=== PATIENT | female | born 1975 | race Caucasian/White ===

== ENCOUNTER 2018-09-03 15:54 | Emergency (ER) | payer OTHER ==
[2018-09-03 16:09] VITALS: RESP 18
--- NOTE | 2018-09-03 17:28 | ED ---
Abdominal Pain HPI - General Chief Complaint: Abdominal Pain Stated Complaint: Abd Pain Time Seen by Provider: 09/03/18 17:27 Source: patient, RN notes reviewed, old records reviewed Mode of arrival: ambulatory Limitations: no limitations - History of Present Illness Initial Comments: Patient is a 42 year old female with 1 month post bariatric bypass surgery. Patient had this at [facility] one month ago. Patient reports that she's been having left-sided abdominal pain has been progressively worse over the past 2 weeks. She reports she try to follow-up with her surgeon and she does have an appointment scheduled next week. Patient states that she's had nausea episodes of vomiting. Patient states she's also had some constipation. Patient reports that she has had no fevers or chills. Patient states that each time she tries to eat she has severe pain. MD Complaint: abdominal pain - Related Data Home Medications Medication Instructions Recorded Confirmed Calcium Carb/Vitamin D3/Vit K1 2 tab PO AC-LUNCH 09/03/18 09/03/18 [Viactiv Soft Chew Tablet] Iron Chewable(Unknown Dose) 3 tab PO HS 09/03/18 09/03/18 Multivitamin [Multivitamins Adult 2 tab PO DAILY 09/03/18 09/03/18 Gummies] Previous Rx's Medication Instructions Recorded HYDROcodone/APAP 5-325MG [[place]cam[place] 1 tab PO Q6HR PRN #12 tab 09/03/18 5-325] Ondansetron Odt [Zofran Odt] 4 mg PO Q8HR PRN #12 tab 09/03/18 Allergies Allergy/AdvReac Type Severity Reaction Status Date / Time morphine AdvReac Nausea & Verified 09/03/18 17:52 Vomiting Review of Systems ROS Statement: Those systems with pertinent positive or pertinent negative responses have been documented in the HPI. ROS Other: All systems not noted in ROS Statement are negative. Past Medical History Past Medical History: No Reported History History of Any Multi-Drug Resistant Organisms: None Reported Additional Past Surgical History / Comment(s): gastric bypass RNY Past Psychological History: No Psychological Hx Reported Smoking Status: Current every day smoker Past Alcohol Use History: Occasional Past Drug Use History: None Reported General Exam Limitations: no limitations General appearance: alert, in no apparent distress Head exam: Present: atraumatic, normocephalic, normal inspection Eye exam: Present: normal appearance, PERRL, EOMI. Absent: scleral icterus, conjunctival injection, periorbital swelling ENT exam: Present: normal exam, mucous membranes moist Neck exam: Present: normal inspection. Absent: tenderness, meningismus, lymphadenopathy Respiratory exam: Present: normal lung sounds bilaterally. Absent: respiratory distress, wheezes, rales, rhonchi, stridor Cardiovascular Exam: Present: regular rate, normal rhythm, normal heart sounds. Absent: systolic murmur, diastolic murmur, rubs, gallop, clicks GI/Abdominal exam: Present: soft, tenderness (LUQ Tenderness ), normal bowel sounds. Absent: distended, guarding, rebound, rigid Extremities exam: Present: normal inspection, full ROM, normal capillary refill. Absent: tenderness, pedal edema, joint swelling, calf tenderness Back exam: Present: normal inspection Neurological exam: Present: alert, oriented X3, CN II-XII intact Psychiatric exam: Present: normal affect, normal mood Skin exam: Present: warm, dry, intact, normal color. Absent: rash Course Vital Signs 09/03/18 09/03/18 16:05 18:00 Temperature 98.9 F Pulse Rate 117 H 103 H Respiratory 18 18 Rate Blood Pressure 103/72 100/66 O2 Sat by Pulse 97 97 Oximetry Medical Decision Making - Medical Decision Making Patient is a 32-year-old female 1 month postop for gastric bypass surgery presents emergency department today with chief complaint of left upper quadrant abdominal pain worse after eating for the past 3 weeks. At this time Patient received IV fluids and laboratory obtained. She is given 2 L bolus. Patient had a slight leukocytosis of 15,000. Most likely reactive to vomiting. Patient has no fever at this time. Patient urinalysis does show significant hematuria however she complains of no back pain or concern for kidney stones. She denies any dysuria. I discussed that she should follow-up with her PCP and have her urine rechecked. We will do a urine culture at this time. Patient was reevaluated and resting comfortably bed. Patient was offered transfer to [facility] to see her surgeon sooner for reevaluation. She states she has an appointment on Saturday would prefer to go home. I will prescribe the Patient a short course of pain medication and nausea medicine in the meantime. Patient agrees to have close return parameters. - Lab Data Result diagrams: 09/03/18 17:55 09/03/18 17:55 Lab Results 09/03/18 09/03/18 09/03/18 Range/Units 17:55 17:55 17:55 WBC 15.5 H (3.8-10.6) k/uL RBC 4.32 (3.80-5.40) m/uL Hgb 13.1 (11.4-16.0) gm/dL Hct 38.8 (34.0-46.0) % MCV 90.0 (80.0-100.0) fL MCH 30.3 (25.0-35.0) pg MCHC 33.6 (31.0-37.0) g/dL RDW 12.5 (11.5-15.5) % Plt Count 382 (150-450) k/uL Neutrophils % 78 % Lymphocytes % 16 % Monocytes % 4 % Eosinophils % 1 % Basophils % 0 % Neutrophils # 12.0 H (1.3-7.7) k/uL Lymphocytes # 2.5 (1.0-4.8) k/uL Monocytes # 0.6 (0-1.0) k/uL Eosinophils # 0.2 (0-0.7) k/uL Basophils # 0.0 (0-0.2) k/uL PT 11.2 (9.0-12.0) sec INR 1.2 H (<1.2) APTT 25.2 (22.0-30.0) sec Sodium 135 L (137-145) mmol/L Potassium 4.8 (3.5-5.1) mmol/L Chloride 100 (98-107) mmol/L Carbon Dioxide 24 (22-30) mmol/L Anion Gap 11 mmol/L BUN 9 (7-17) mg/dL Creatinine 0.48 L (0.52-1.04) mg/dL Est GFR (CKD-EPI)AfAm >90 (>60 ml/min/1.73 sqM) Est GFR (CKD-EPI)NonAf >90 (>60 ml/min/1.73 sqM) Glucose 98 (74-99) mg/dL Calcium 9.6 (8.4-10.2) mg/dL Total Bilirubin 0.4 (0.2-1.3) mg/dL AST 20 (14-36) U/L ALT 35 (9-52) U/L Alkaline Phosphatase 113 (38-126) U/L Total Protein 6.7 (6.3-8.2) g/dL Albumin 3.5 (3.5-5.0) g/dL Amylase <30 L (30-110) U/L Lipase 17 L (23-300) U/L Urine Color Urine Appearance (Clear) Urine pH (5.0-8.0) Ur Specific [place] (1.001-1.035) Urine Protein (Negative) Urine Glucose (UA) (Negative) Urine Ketones (Negative) Urine Blood (Negative) Urine Nitrite (Negative) Urine Bilirubin (Negative) Urine Urobilinogen (<2.0) mg/dL Ur Leukocyte Esterase (Negative) Urine RBC (0-5) /hpf Urine WBC (0-5) /hpf Ur Squamous Epith Cells (0-4) /hpf Urine Bacteria (None) /hpf Urine Mucus (None) /hpf 09/03/18 Range/Units 18:28 WBC (3.8-10.6) k/uL RBC (3.80-5.40) m/uL Hgb (11.4-16.0) gm/dL Hct (34.0-46.0) % MCV (80.0-100.0) fL MCH (25.0-35.0) pg MCHC (31.0-37.0) g/dL RDW (11.5-15.5) % Plt Count (150-450) k/uL Neutrophils % % Lymphocytes % % Monocytes % % Eosinophils % % Basophils % % Neutrophils # (1.3-7.7) k/uL Lymphocytes # (1.0-4.8) k/uL Monocytes # (0-1.0) k/uL Eosinophils # (0-0.7) k/uL Basophils # (0-0.2) k/uL PT (9.0-12.0) sec INR (<1.2) APTT (22.0-30.0) sec Sodium (137-145) mmol/L Potassium (3.5-5.1) mmol/L Chloride (98-107) mmol/L Carbon Dioxide (22-30) mmol/L Anion Gap mmol/L BUN (7-17) mg/dL Creatinine (0.52-1.04) mg/dL Est GFR (CKD-EPI)AfAm (>60 ml/min/1.73 sqM) Est GFR (CKD-EPI)NonAf (>60 ml/min/1.73 sqM) Glucose (74-99) mg/dL Calcium (8.4-10.2) mg/dL Total Bilirubin (0.2-1.3) mg/dL AST (14-36) U/L ALT (9-52) U/L Alkaline Phosphatase (38-126) U/L Total Protein (6.3-8.2) g/dL Albumin (3.5-5.0) g/dL Amylase (30-110) U/L Lipase (23-300) U/L Urine Color Yellow Urine Appearance Cloudy H (Clear) Urine pH 6.5 (5.0-8.0) Ur Specific [place] 1.022 (1.001-1.035) Urine Protein 1+ H (Negative) Urine Glucose (UA) Negative (Negative) Urine Ketones 1+ H (Negative) Urine Blood Small H (Negative) Urine Nitrite Negative (Negative) Urine Bilirubin Negative (Negative) Urine Urobilinogen 3.0 (<2.0) mg/dL Ur Leukocyte Esterase Negative (Negative) Urine RBC 44 H (0-5) /hpf Urine WBC 5 (0-5) /hpf Ur Squamous Epith Cells 2 (0-4) /hpf Urine Bacteria Moderate H (None) /hpf Urine Mucus Many H (None) /hpf Disposition Clinical Impression: Abdominal pain, S/P gastric bypass, Hematuria Disposition: HOME SELF-CARE Condition: Good Instructions: Abdominal Pain (ED) Additional Instructions: Patient advised follow-up with primary care physician in regards to hematuria. Patient should follow up with her surgeon on Saturday. Clear liquid diet.. Return to the emergency department if any alarming signs or symptoms occur. Prescriptions: HYDROcodone/APAP 5-325MG [[place] 5-325] 1 tab PO Q6HR PRN #12 tab PRN Reason: Pain Ondansetron Odt [Zofran Odt] 4 mg PO Q8HR PRN #12 tab PRN Reason: Nausea Is patient prescribed a controlled substance at d/c from ED?: Yes When asked, does pt state using other controlled substances?: Yes If prescribed controlled substance>3 days was MAPS reviewed?: Prescribed <3 Days If opioid is for acute pain is fill amount 7 days or less?: Yes If Rx opioid, was Start Talking consent form obtained?: Yes Referrals: Grace Delaney MD [Primary Care Provider] - 1-2 days Time of Disposition: 19:33
[2018-09-03] MEDS ORDERED: ONDANSETRON 4 MG/2 ML VIAL IVP STA (17:41)
[2018-09-03] MEDS ORDERED: PANTOPRAZOLE 40 MG/10 ML VIAL IVP STA (17:41)
[2018-09-03] MEDS ORDERED: SODIUM CHLORIDE 0.9% 1,000 ML IV STA ×2 (17:41)
[2018-09-03] MEDS ORDERED: HYDROmorphone 1 MG/ML 1 ML SYRINGE IVP STA (17:41)
[2018-09-03] MEDS ORDERED: IOPAMIDOL-300 CONTRAST 30 ML VIAL (ORAL USE) PO PRN (17:43)
[2018-09-03 18:20] LABS: Basophils % (A) 0 %; Eosinophils # (A) 0.2 k/uL (0-0.7); Eosinophils % (A) 1 %; HCT 38.8 % (34.0-46.0); HGB 13.1 gm/dL (11.4-16.0); Lymphocytes # (A) 2.5 k/uL (1.0-4.8); Lymphocytes % (A) 16 %; MCH 30.3 pg (25.0-35.0); MCHC 33.6 g/dL (31.0-37.0); Mean Platelet Volume 7.8; Monocytes # (A) 0.6 k/uL (0-1.0); Monocytes % (A) 4 %; Neutrophils % (A) 78 %; Platelet Count 382 k/uL (150-450); RBC 4.32 m/uL (3.80-5.40); RDW 12.5 % (11.5-15.5); WBC 15.5 k/uL (3.8-10.6)
[2018-09-03 18:28] LABS: ALT 35 U/L (9-52); AST 20 U/L (14-36); Albumin 3.5 g/dL (3.5-5.0); Alkaline Phosphatase 113 U/L (38-126); Amylase <30 U/L (30-110); Anion Gap 11 mmol/L; Blood Urea Nitrogen 9 mg/dL (7-17); Calcium 9.6 mg/dL (8.4-10.2); Carbon Dioxide 24 mmol/L (22-30); Chloride 100 mmol/L (98-107); Glucose 98 mg/dL (74-99); Lipase 17 U/L (23-300); Potassium 4.8 mmol/L (3.5-5.1); Sodium 135 mmol/L (137-145); Total Bilirubin 0.4 mg/dL (0.2-1.3); Total Protein 6.7 g/dL (6.3-8.2)
[2018-09-03 18:30] LABS: INR 1.2 (<1.2); Partial Thromboplastin Time 25.2 sec (22.0-30.0); Prothrombin Time 11.2 sec (9.0-12.0)
[2018-09-03 18:56] LABS: Appearance,Urine Cloudy (Clear); Bacteria,Urine Moderate /hpf; Bilirubin,Urine Negative (Negative); Blood,Urine Small (Negative); Color,Urine Yellow; Glucose,Urine (UA) Negative (Negative); Ketones,Urine 1+ (Negative); Leukocyte Esterase,Urine Negative (Negative); Mucus,Urine Many /hpf; Nitrite,Urine Negative (Negative); PH, Urine 6.5 (5.0-8.0); Protein,Urine 1+ (Negative); RBC,Urine 44 /hpf (0-5); Specific Gravity,Urine 1.022 (1.001-1.035); Squamous Epithelial Cell,Urine 2 /hpf (0-4); WBC,Urine 5 /hpf (0-5)
--- NOTE | 2018-09-03 19:09 | CT ---
EXAMINATION TYPE: CT abdomen pelvis w con DATE OF EXAM: 09/03/2018 COMPARISON: HISTORY: recdnt RNY to correct gastric reflux from bypass sleeve. Abdominal pain/decreased appetite CT DLP: 759.9 mGycm Automated exposure control for dose reduction was used. TECHNIQUE: Helical acquisition of images was performed from the lung bases through the pelvis. CONTRAST: Performed with Oral Contrast and with IV Contrast, patient injected with 100 mL of Isovue 300. FINDINGS: Lung bases are clear. There is no pleural effusion. There are small hiatal hernia. There are surgical clips and deformity of the stomach. There is gastrojejunostomy. There are clips from cholecystectomy . Liver appears normal. Bile ducts are not dilated. Spleen appears normal. There is no evidence of pa ncreatic mass. There is no adrenal mass. Kidneys show satisfactory contrast opacification. There is no hydronephrosi s. Bladder is almost empty. There is no pelvic mass. There is no free fluid in the pelvis. There is n o inguinal hernia. There are clips apparently from appendectomy. I see no intestinal wall thickening. There is no evidence of a bowel obstruction. Lumbar spine appears intact. I see no bony destructive process. Bony pelvis appears intact. There is no evidence of mesenteric edema or adenopathy. IMPRESSION: PREVIOUS GASTRIC SURGERY WITH GASTROJEJUNOSTOMY. NO EVIDENCE OF BOWEL OBSTRUCTION. NO SIGN OF ACUTE A BDOMEN AND PELVIS.
[2018-09-03 19:33] VITALS: BP 104/63; PULSE 100; TEMP 98.3
== END 2018-09-03 19:47 | disposition home or self-care (01) ==
LOC: EC 15:54
DX: R10.12 Left upper quadrant pain (principal); R31.9 Hematuria, unspecified; Z98.84 Bariatric surgery status; D72.829 Elevated white blood cell count, unspecified; R11.2 Nausea with vomiting, unspecified; K59.00 Constipation, unspecified; F17.200 Nicotine dependence, unspecified, uncomplicated; Z88.5 Allergy status to narcotic agent
CPT/HCPCS: 99284; 96374; 96375 ×2; 96361 ×2; 36415; 80053; 82150; 83690; 85025; 85610; 85730; 81001; 87040; 87086; 74177; J2405; J1170; C9113; Q9967

== ENCOUNTER → 2019-07-20 | Outpatient (CLI) | payer OTHER ==
--- NOTE | 2019-07-21 09:22 | XR ---
Chest x-ray with left RIBS HISTORY: Left rib pain for 1 month Frontal view of the chest and 4 views of the left ribs submitted, no comparisons There is no evident airspace disease, pneumothorax, or pleural effusion. Cardiac mediastinal silhouet te, pulmonary vascularity and juan carlos are within normal limits. There is a gentle spinal curvature. Bone mineralization is normal. No evident displaced rib fracture. Postop changes noted in the upper abdom en. IMPRESSION: No acute abnormality. Bone scan may be of increased sensitivity to assess for occult abno rmality is indicated.
== END | disposition home or self-care (01) ==
LOC: RADXRYALE 15:55
PROVIDERS: ATTEND Internal Medicine
DX: R07.81 Pleurodynia (principal)